=== PATIENT | male | born 1955 | race Caucasian/White ===

== ENCOUNTER 2018-01-08 20:57 | Emergency (ER) | payer OTHER ==
[2018-01-08 21:04] VITALS: BP 159/96; PULSE 114; TEMP 99.1; BMI 30.7
--- NOTE | 2018-01-08 21:12 | PDOC ---
Rapid Medical Evaluation Chief Complaint: Injury Time Seen by Provider: 01/08/18 21:03 Medical Evaluation: Allergies Allergy/AdvReac Type Severity Reaction Status Date / Time No Known Allergies Allergy Verified 01/08/18 21:04 Vital Signs Temp Pulse Resp BP Pulse Ox 99.1 F 114 H 18 159/96 96 01/08/18 21:01 01/08/18 21:01 01/08/18 21:01 01/08/18 21:01 01/08/18 21:01 01/08/18 21:06 I have performed a brief in-person evaluation of this patient. The patient presents with a chief complaint of: left shoulder pain and arm pain s/p fall 2 days ago with bruising to anterior chest and left arm. Denies use of any anticoagulation , h/o bleeding tendency, Pertinent physical exam findings: ecchymosis of left side anterior chest wall and medial side of left upper arm. moderate tenderness over left AC jont and anterior LT shoulder. 2cm healing laceration to left eyebrow, no active bleeding I have ordered the following: CXR, LT shoulder x-ray The patient will proceed to the ED for further evaluation. Discharge Disposition - Diagnosis Left anterior shoulder pain Fall Qualifiers: Encounter type: initial encounter Qualified Code(s): W19.XXXA - Unspecified fall, initial encounter - Referrals Referrals: Nilson Wiseman MD [Primary Care Provider] - - Patient Instructions - Post Discharge Activity
[2018-01-08] MEDS ORDERED: DIPHTH,PERTUSS(ACELL),TET 0.5 ML DISP.SYRIN IM ONE (21:56)
--- NOTE | 2018-01-08 22:03 | PDOC ---
History of Present Illness - General Chief Complaint: Injury Stated Complaint: FALL, EYE AND SHOULDER IINJURY Time Seen by Provider: 01/08/18 21:03 History Source: Patient Exam Limitations: No Limitations - History of Present Illness Initial Comments: 01/08/18 22:05 HISTORY OF PRESENT ILLNESS: Is a 62-year-old male past medical history of hypertension and bronchitis who presents emergency Department with chest pain, left shoulder pain, left eyebrow abrasion status post trip and fall 3 days ago. Patient states he was in his house with his phone rang and he went running for the phone tripping over something on the floor and landing on his tackle box chest first. He states after striking his chest on the tackle box his head continued and struck the hardwood floor. He denies any loss of consciousness. Patient states he was immediately able to get off the floor and was able to answer the phone. Patient states she waited 3 days for evaluation as the pain is currently 2 much to handle at this time. Patient with unknown tetanus shot. No recent travel or sick contacts. PAST MEDICAL HISTORY: see HPI SURGICAL HISTORY: Denies ALLERGIES: No known drug allergies REVIEW OF SYSTEMS General/Constitutional: Denies fever or chills. Denies weakness, weight change. HEENT: Denies change in vision. Denies ear pain or discharge. Denies sore throat. Cardiovascular: chest pain. No shortness of breath. Respiratory: Denies cough, wheezing, or hemoptysis. Gastrointestinal: Denies nausea, vomiting, diarrhea or constipation. Denies rectal bleeding. Genitourinary: Denies dysuria, frequency, or change in urination. Musculoskeletal: Left shoulder pain. Denies neck or back pain. Skin and breasts: bruising to chest. Neurologic: Denies headache, vertigo, loss of consciousness, or loss of sensation. Psychiatric: Denies depression or anxiety. Endocrine: Denies increased thirst. Denies abnormal weight change. Hematologic/Lymphatic: Denies anemia, easy bleeding, or history of blood clots. Allergic/Immunologic: Denies hives or skin allergy. Denies latex allergy. PHYSICAL EXAM General Appearance: Well-appearing, appropriately dressed. No apparent distress , no intoxication. HEENT: EOMI, PERRLA, normal ENT inspection, normal voice, TMs normal, pharynx normal. No conjunctival pallor. No photophobia, scleral icterus. Neck: Supple. Trachea midline. No tenderness, rigidity, carotid bruit, stridor , lymphadenopathy, or thyromegaly. Respiratory/Chest: Lungs CTAB. No shortness of breath, chest tenderness, respiratory distress, accessory muscle use. No crackles, rales, rhonchi, stridor , wheezing, dullness Cardiovascular: RRR. S1, S2. No JVD, murmur, bradycardia, tachycardia. Vascular Pulses: Dorsalis-Pedis (R): 2+, Dorsalis-Pedis (L): 2+ Gastrointestinal/Abdominal: Normal bowel sounds. Abdomen soft, non-distended. No tenderness or rebound tenderness. No organomegaly, pulsatile mass, guarding, hernia, hepatomegaly, splenomegaly. Lymphatic: No adenopathy, tenderness. Musculoskeletal/Extremities: Normal inspection. FROM of all extremities, normal capillary refill. Pelvis Stable. No CVA tenderness. No tenderness to extremities, pedal edema, swelling, erythema or deformity. Integumentary: Ecchymosis present to left chest extending from the left shoulder down to the seventh costal. There is with appearance of healing. Abrasion noted to left eyebrow laterally. Neurologic: acquisitions editor II-XII intact. Fully oriented, alert. Appropriate mood/affect. Motor strength 5/5. No appreciable EOM palsy, facial droop or sensory deficit. Past History - Past Medical History Allergies/Adverse Reactions: Allergies Allergy/AdvReac Type Severity Reaction Status Date / Time No Known Allergies Allergy Verified 01/08/18 21:04 Home Medications: Ambulatory Orders Albuterol 0.083% Nebulizer Apurva [Ventolin 0.083%] 1 neb NEB Q4H #20 vial Amlodipine Besylate/Benazepril [Lotrel 10-20 mg Capsule] 1 cap PO DAILY Azithromycin [Zithromax 250mg Tablets -] 250 mg PO UTDICT #6 tab 11/10/17 Ezetimibe/Simvastatin [Vytorin 10-20 mg Tablet] 1 tab PO DAILY 11/10/17 predniSONE [Deltasone -] 40 mg PO DAILY #8 tablet 11/10/17 COPD: Yes (CHRONIC BRONCHITIS.) HTN: Yes - Immunization History Immunization Up to Date: Yes - Suicide/Smoking/Psychosocial Hx Smoking History: Never smoked Have you smoked in the past 12 months: No Number of Cigarettes Smoked Daily: 20 If you are a former smoker, when did you quit?: 1YR Information on smoking cessation initiated: No Hx Alcohol Use: No Drug/Substance Use Hx: No Substance Use Type: None *Physical Exam - Vital Signs Last Vital Signs Temp Pulse Resp BP Pulse Ox 99.1 F 114 H 18 159/96 96 01/08/18 21:01 01/08/18 21:01 01/08/18 21:01 01/08/18 21:01 01/08/18 21:01 Medical Decision Making - Medical Decision Making 01/08/18 22:02 A/P: 62-year-old male with bruising to anterior chest status post trip and fall X-rays of chest, shoulder, humerus Boostrix Reassess X-ray of the chest as read by me: Angles clear. Cardiac silhouette is within normal limits. No focal infiltrates or consolidations present. Normal lung exam. X-ray of shoulder as read by me: mortise is intact. Scapular Y view reveals appropriate alignment of bones of the shoulder. X-ray of the humerus as read by me: No acute fractures noted. Patient with contusion to anterior chest wall and abrasion to left eyebrow. Discharge home *DC/Admit/Observation/Transfer Diagnosis at time of Disposition: Left anterior shoulder pain Fall Qualifiers: Encounter type: initial encounter Qualified Code(s): W19.XXXA - Unspecified fall, initial encounter Contusion, chest wall Qualifiers: Encounter type: initial encounter Laterality: left Qualified Code(s): S20.212A - Contusion of left front wall of thorax, initial encounter Abrasion of left eyebrow Qualifiers: Encounter type: initial encounter Qualified Code(s): S00.212A - Abrasion of left eyelid and periocular area, initial encounter - Discharge Dispostion Disposition: HOME Condition at time of disposition: Stable Decision to Admit order: No - Referrals Referrals: Nilson Wiseman MD [Primary Care Provider] - - Patient Instructions Additional Instructions: Apply ice to affected areas. Take Tylenol as needed for pain. Avoid Motrin as this can cause more bleeding and make the bruising worse. Return to emergency department for worsening pain, shortness of breath, dizziness, nausea, vomiting, inability to move shoulder or any other concerns. - Post Discharge Activity
== END 2018-01-08 22:16 | disposition home or self-care (01) ==
LOC: JERFT 20:57
PROC: 3E0234Z Introduction of Serum, Toxoid and Vaccine into Muscle, Percutaneous Approach (ICD-10-PCS; principal; 2018-01-08)
DX: S20.212A Contusion of left front wall of thorax, initial encounter (principal); M25.512 Pain in left shoulder; S00.212A Abrasion of left eyelid and periocular area, initial encounter; W01.198A Fall on same level from slipping, tripping and stumbling with subsequent striking against other object, initial encounter; Y93.02 Activity, running; Y92.038 Other place in apartment as the place of occurrence of the external cause; Y99.8 Other external cause status; I10 Essential (primary) hypertension; J42 Unspecified chronic bronchitis
CPT/HCPCS: 71045-TC-FY; 73030-TC-LT-FY; 73060-TC-LT-FY; 90471; 90715; 99281-25

== ENCOUNTER 2020-10-08 05:22 | Emergency (ER) | payer OTHER ==
[2020-10-08 05:39] VITALS: TEMP 98.2; BMI 29.0
[2020-10-08] MEDS ORDERED: ALBUTEROL SO4 2.5/IPRATROPIUM 0.5 INH SOL 3 ML VIAL.NEB. NEB ONE ×2 (05:39→07:25)
[2020-10-08] MEDS ORDERED: DEXAMETHASONE SOD PHOSPHATE 10 MG/1 ML VIAL IM ONE (05:43)
[2020-10-08] MEDS ORDERED: DEXAMETHASONE SOD PHOSPHATE 10 MG/1 ML VIAL ONE (05:51)
[2020-10-08] MEDS: ALBUTEROL SO4 2.5/IPRATROPIUM 0.5 INH SOL 3 ML VIAL.NEB. NEB SCH ×2 (07:25→07:35)
[2020-10-08 07:49] LABS: VENOUS BASE EXCESS -1.3 mmol/L (-2-2); VENOUS O2 SATURATION 31.8 % (70-80); VENOUS PCO2 51.7 mmHg (38-52); VENOUS PH 7.314 (7.310-7.410)
[2020-10-08 07:57] LABS: BASO % 0.3 % (0-2.0); EOS % 0.5 % (0-4.5); HEMATOCRIT 42.4 % (35.4-49); HEMOGLOBIN 14.3 GM/dL (11.7-16.9); LYMPH % 14.5 % (8-40); MCH 31.6 pg (25.7-33.7); MCHC 33.7 g/dl (32.0-35.9); MEAN CELL VOLUME 93.6 fl (80-96); MEAN PLT VOLUME 8.1 fl (7.5-11.1); MONO % 10.9 % (3.8-10.2); NEUT % 73.8 % (42.8-82.8); PLATELET COUNT 317 10^3/uL (134-434); RBC 4.53 M/mm3 (4.00-5.60); RDW 13.9 % (11.9-15.9); WHITE BLOOD COUNT 11.2 K/mm3 (4.0-10.0)
[2020-10-08 08:06] VITALS: BP 133/82; PULSE 95
[2020-10-08 08:06] LABS: INR 0.91 (0.83-1.09)
[2020-10-08 08:08] LABS: CHLORIDE 107 mmol/L (98-107); SODIUM 142 mmol/L (136-145)
[2020-10-08 08:09] LABS: ACTIVATED PTT 31.7 SECONDS (25.2-36.5)
[2020-10-08 08:10] LABS: ALBUMIN 4.4 g/dl (3.4-5.0); ANION GAP 8 MMOL/L (8-16); BLOOD UREA NITROGEN 23.3 mg/dL (7-18); CALCIUM 9.6 mg/dL (8.5-10.1); CO2 27 mmol/L (21-32); GLUCOSE,RANDOM 100 mg/dL (74-106)
[2020-10-08 08:13] LABS: BILIRUBIN,DIRECT 0.1 mg/dL (0.0-0.2); SGOT/AST 21 U/L (15-37); SGPT/ALT 34 U/L (13-61)
[2020-10-08 08:14] LABS: CREATININE 1.1 mg/dL (0.55-1.3)
[2020-10-08 08:15] LABS: BILIRUBIN,TOTAL 0.3 mg/dL (0.2-1); TOT PROT 7.9 g/dl (6.4-8.2)
[2020-10-08 08:16] LABS: ALK PHOS 70 U/L (45-117)
[2020-10-08 08:17] LABS: LDH 207 U/L (87-246)
== END 2020-10-08 09:41 | disposition left against medical advice (07) ==
LOC: JER 05:22
PROC: 3E0F7GC Introduction of Other Therapeutic Substance into Respiratory Tract, Via Natural or Artificial Opening (ICD-10-PCS; principal; 2020-10-08)
PROC: 3E0233Z Introduction of Anti-inflammatory into Muscle, Percutaneous Approach (ICD-10-PCS; 2020-10-08)
DX: J44.1 Chronic obstructive pulmonary disease with (acute) exacerbation (principal); N39.44 Nocturnal enuresis
CPT/HCPCS: 36415; 71045-TC-FY; 80053; 82248; 82550; 82553; 82728; 82803; 83605; 83615; 84484; 85025; 85610; 85730; 86140; 87040; 87804; 93005; 93010; 99285-25; C9803; J1100; U0003; U0005

== ENCOUNTER 2022-04-16 05:11 | Emergency (ER) | payer OTHER ==
[2022-04-16 05:23] VITALS: TEMP 97.7; BMI 25.7
[2022-04-16] MEDS ORDERED: ALBUTEROL SO4 2.5/IPRATROPIUM 0.5 INH SOL 3 ML VIAL.NEB. NEB ONE ×2 (08:00→08:06)
[2022-04-16 08:27] LABS: BASO % 0.3 % (0-2.0); HEMATOCRIT 33.3 % (35.4-49); LYMPH % 14.1 % (8-40); MCH 31.6 pg (25.7-33.7); MCHC 33.1 g/dl (32.0-35.9); MEAN CELL VOLUME 95.4 fl (80-96); MEAN PLT VOLUME 7.1 fl (7.5-11.1); MONO % 6.8 % (3.8-10.2); NEUT % 77.8 % (42.8-82.8); PLATELET COUNT 539 10^3/uL (134-434); RBC 3.49 M/mm3 (4.00-5.60); RDW 13.7 % (11.9-15.9); WHITE BLOOD COUNT 10.6 K/mm3 (4.0-10.0)
[2022-04-16 09:03] LABS: ALBUMIN 3.2 g/dl (3.4-5.0); BLOOD UREA NITROGEN 19.6 mg/dL (7-18); CALCIUM 9.6 mg/dL (8.5-10.1); MAGNESIUM 1.8 mg/dL (1.8-2.4)
[2022-04-16 09:06] LABS: CREATININE 0.9 mg/dL (0.55-1.3)
[2022-04-16 09:08] LABS: BILIRUBIN,TOTAL 0.4 mg/dL (0.2-1); TOT PROT 6.7 g/dl (6.4-8.2)
[2022-04-16 10:16] VITALS: BP 130/80; PULSE 83; RESP 19
== END 2022-04-16 10:18 | disposition home or self-care (01) ==
LOC: JER 05:11
PROC: 3E0F7GC Introduction of Other Therapeutic Substance into Respiratory Tract, Via Natural or Artificial Opening (ICD-10-PCS; principal; 2022-04-16)
DX: R05.9 Cough, unspecified (principal); F19.982 Other psychoactive substance use, unspecified with psychoactive substance-induced sleep disorder
CPT/HCPCS: 0241U-QW; 36415; 71046-TC-FY; 80053; 83735; 85025; 93005; 93010; 99285-25

== ENCOUNTER 2022-05-22 16:17 | Emergency (ER) | payer OTHER ==
[2022-05-22 16:25] VITALS: BP 151/88; PULSE 77; RESP 18; TEMP 98; BMI 27.8
[2022-05-22 18:36] LABS: BASO % 0.9 % (0-2.0); EOS % 3.4 % (0-4.5); HEMATOCRIT 31.6 % (35.4-49); HEMOGLOBIN 10.5 GM/dL (11.7-16.9); LYMPH % 9.9 % (8-40); MCH 30.7 pg (25.7-33.7); MCHC 33.1 g/dl (32.0-35.9); MEAN CELL VOLUME 92.9 fl (80-96); MEAN PLT VOLUME 7.5 fl (7.5-11.1); MONO % 6.2 % (3.8-10.2); NEUT % 79.6 % (42.8-82.8); PLATELET COUNT 694 10^3/uL (134-434); RDW 15.6 % (11.9-15.9); WHITE BLOOD COUNT 14.5 K/mm3 (4.0-10.0)
[2022-05-22] MEDS ORDERED: methylPREDNISolone NA SUCC 125 MG/2 ML VIAL IVPB ONE (19:14)
[2022-05-22] MEDS ORDERED: methylPREDNISolone NA SUCC 125 MG/2 ML VIAL ONE (19:32)
[2022-05-22 19:35] LABS: CALCIUM 9.2 mg/dL (8.5-10.1)
[2022-05-22 19:36] LABS: ALBUMIN 3.1 g/dl (3.4-5.0); BLOOD UREA NITROGEN 22.7 mg/dL (7-18)
[2022-05-22 19:39] LABS: CREATININE 0.8 mg/dL (0.55-1.3)
[2022-05-22 19:41] LABS: BILIRUBIN,TOTAL 0.3 mg/dL (0.2-1); TOT PROT 6.9 g/dl (6.4-8.2)
[2022-05-22 19:44] LABS: N-TERMINAL BNP 157.9 pg/ml (5-125)
== END 2022-05-22 19:41 | disposition left against medical advice (07) ==
LOC: JER 16:17
PROC: 3E033GC Introduction of Other Therapeutic Substance into Peripheral Vein, Percutaneous Approach (ICD-10-PCS; principal; 2022-05-22)
DX: R06.09 Other forms of dyspnea (principal); J98.4 Other disorders of lung; J98.11 Atelectasis
CPT/HCPCS: 36415; 71046-TC-FY; 80053; 83880; 85025; 93005; 93010; 99285-25

== ENCOUNTER 2022-06-27 16:11 | Emergency (ER) | payer OTHER ==
[2022-06-27 16:27] VITALS: BP 149/93; PULSE 86; RESP 18; TEMP 98.8; BMI 29.2
[2022-06-27] MEDS ORDERED: LIDOCAINE HCL 1%, 10 MG/ML (50 mL VIAL) SQ ONE (17:46)
[2022-06-27] MEDS ORDERED: LIDOCAINE HCL 1%, 10 MG/ML (20ML VIAL) ONE (17:46)
[2022-06-27 20:41] LABS: BF WBC & OTHER NUCLEATED CELLS 9448 /mm3
[2022-06-27 20:49] LABS: CRYSTALS,SYNOVIAL FLUID NEGATIVE
[2022-06-27 21:04] LABS: BODY FLUID MONOCYTE 12 %
== END 2022-06-27 20:25 | disposition home or self-care (01) ==
LOC: FER 16:11
PROC: 0S9C3ZZ Drainage of Right Knee Joint, Percutaneous Approach (ICD-10-PCS; principal; 2022-06-27)
DX: M25.461 Effusion, right knee (principal)
CPT/HCPCS: 36415; 73562-TC-RT-FY; 84560; 87070; 87075; 87205; 89060; 99284-25

== ENCOUNTER 2022-07-12 07:04 | Emergency (ER) | payer OTHER ==
[2022-07-12 07:19] VITALS: BP 160/94; PULSE 89; RESP 18; TEMP 97.8; BMI 31.4
== END 2022-07-12 11:45 | disposition home or self-care (01) ==
LOC: FER 07:04
DX: R30.0 Dysuria (principal); M54.50 Low back pain, unspecified
CPT/HCPCS: 74176-TC; 81003; 81015; 87086; 99284-25

== ENCOUNTER 2022-07-28 04:08 | Day surgery (SDC) | payer OTHER ==
[2022-07-24 13:11] VITALS: BMI 31.4
[2022-07-28] MEDS ORDERED: PROPOFOL 40 ML ONE (10:55)
[2022-07-28] MEDS ORDERED: MIDAZOLAM HCL 2 MG/2 ML SINGLE DOSE VIAL ONE ×2 (10:55→11:48)
[2022-07-28] MEDS ORDERED: ALBUTEROL SO4 HFA INHALER IH ONE (11:28)
[2022-07-28] MEDS ORDERED: LIDOCAINE HCL 1%, 10 MG/ML (20ML VIAL) INF ONE ×2 (11:29→12:01)
[2022-07-28] MEDS ORDERED: BUPIVACAINE HCL/PF 0.5% (5MG/ML) 10 ML VIAL NR ONE ×2 (11:29→12:01)
[2022-07-28] MEDS ORDERED: ceFAZolin SODIUM 1 GM VIAL IVPB ONE ×2 (11:30→11:58)
[2022-07-28] MEDS ORDERED: ceFAZolin SODIUM 1 GM VIAL ONE (11:54)
[2022-07-28] MEDS ORDERED: ONDANSETRON 4 MG/2 ML VIAL ONE (11:54)
[2022-07-28] MEDS ORDERED: DEXAMETHASONE SOD PHOSPHATE 4 MG/1 ML VIAL ONE (11:54)
[2022-07-28] MEDS ORDERED: KETOROLAC TROMETHAMINE 30 MG/1 ML VIAL ONE (11:54)
[2022-07-28] MEDS ORDERED: ALBUTEROL SO4 0.083% IH SOL 2.5 MG/3 ML VIAL.NEB. NEB ONE ×2 (13:34→14:49)
[2022-07-28] MEDS ORDERED: ONDANSETRON 4 MG/2 ML VIAL IVPUSH PRN (14:48)
[2022-07-28] MEDS ORDERED: oxyCODONE HCL 5 MG TABLET PO PRN (14:48)
[2022-07-28] MEDS ORDERED: LACTATED RINGERS SOLUTION 1,000 ML IV SCH (15:00)
[2022-07-28 15:35] VITALS: TEMP 97.2
[2022-07-28 16:15] VITALS: BP 130/91; PULSE 83; RESP 18
== END 2022-07-28 16:25 | disposition home or self-care (01) ==
LOC: JASU-SURG 04:08
PROVIDERS: ATTEND Orthopaedic Surgery
PROC: 01N53ZZ Release Median Nerve, Percutaneous Approach (ICD-10-PCS; principal; 2022-07-28 11:00)
PROC: 01N43ZZ Release Ulnar Nerve, Percutaneous Approach (ICD-10-PCS; 2022-07-28 11:00)
DX: G56.02 Carpal tunnel syndrome, left upper limb (principal); G56.22 Lesion of ulnar nerve, left upper limb
CPT/HCPCS: 88304-TC; 94760

== ENCOUNTER 2022-09-11 07:17 | Day surgery (SDC) | payer OTHER ==
[2022-09-09 12:23] VITALS: BMI 31.4
[2022-09-11] MEDS ORDERED: BUPIVACAINE HCL/PF 0.5% (5MG/ML) 10 ML VIAL ONE (07:29)
[2022-09-11] MEDS ORDERED: LIDOCAINE HCL 1%, 10 MG/ML (20ML VIAL) ONE (07:29)
[2022-09-11] MEDS ORDERED: MIDAZOLAM HCL 2 MG/2 ML SINGLE DOSE VIAL ONE (08:55)
[2022-09-11 10:23] VITALS: RESP 16; TEMP 97.6
[2022-09-11 11:55] VITALS: BP 141/85; PULSE 76
== END 2022-09-11 10:55 | disposition home or self-care (01) ==
LOC: FASU 07:17
PROVIDERS: ATTEND Orthopaedic Surgery
PROC: 0LB50ZZ Excision of Right Lower Arm and Wrist Tendon, Open Approach (ICD-10-PCS; 2022-09-11)
PROC: 01N50ZZ Release Median Nerve, Open Approach (ICD-10-PCS; principal; 2022-09-11 09:26)
DX: G56.01 Carpal tunnel syndrome, right upper limb (principal)
CPT/HCPCS: 88304-TC

== ENCOUNTER 2022-11-19 10:37 | Inpatient (IN) | payer OTHER ==
[2022-11-19 10:46] VITALS: BMI 31.4
[2022-11-19] MEDS ORDERED: SODIUM CHLORIDE 3,062 ML IV ONE (10:48)
[2022-11-19] MEDS ORDERED: CEFTRIAXONE 1,000 MG in DEXTROSE 5%-WATER - 50 ML IVPB ONE (10:51)
[2022-11-19 11:22] LABS: BASO % 0.8 % (0-2.0); HEMATOCRIT 39.1 % (35.4-49); HEMOGLOBIN 12.9 GM/dL (11.7-16.9); LYMPH % 22.7 % (8-40); MCH 30.9 pg (25.7-33.7); MEAN CELL VOLUME 93.7 fl (80-96); MEAN PLT VOLUME 8.1 fl (7.5-11.1); MONO % 5.1 % (3.8-10.2); NEUT % 61.4 % (42.8-82.8); PLATELET COUNT 417 10^3/uL (134-434); RBC 4.17 M/mm3 (4.00-5.60); RDW 15.3 % (11.9-15.9); WHITE BLOOD COUNT 5.5 K/mm3 (4.0-10.0)
[2022-11-19 11:28] LABS: INR 1.1 (0.83-1.09); PROTHROMBIN TIME (PATIENT) 12.7 SEC (9.7-13.0)
[2022-11-19] MEDS ORDERED: CEFTRIAXONE 1 GM/50 ML BAG ONE (11:28)
[2022-11-19 11:31] LABS: ACTIVATED PTT 58.7 SECONDS (25.2-36.5)
[2022-11-19 11:34] LABS: VENOUS BASE EXCESS -2.8 mmol/L (-2-2); VENOUS PH 7.318 (7.310-7.410)
[2022-11-19] MEDS ORDERED: ERYTHROMYCIN 0.5% OPHTHALMIC OINTMENT 3.5 GM TUBE OS ONE (11:37)
[2022-11-19] MEDS ORDERED: ERYTHROMYCIN 0.5% OPHTHALMIC OINTMENT 3.5 GM TUBE OD ONE (11:37)
[2022-11-19 11:40] LABS: POTASSIUM 4.7 mmol/L (3.5-5.1)
[2022-11-19 11:42] LABS: CALCIUM 9.2 mg/dL (8.5-10.1)
[2022-11-19 11:43] LABS: ALBUMIN 3.4 g/dl (3.4-5.0)
[2022-11-19] MEDS ORDERED: ERYTHROMYCIN 0.5% OPHTHALMIC OINTMENT 3.5 GM TUBE ONE (11:44)
[2022-11-19 11:46] LABS: CREATININE 3.3 mg/dL (0.55-1.3)
[2022-11-19 11:47] LABS: BILIRUBIN,TOTAL 0.5 mg/dL (0.2-1); TOT PROT 7.5 g/dl (6.4-8.2)
[2022-11-19] MEDS ORDERED: SODIUM CHLORIDE 1,000 ML IV SCH (14:30)
[2022-11-19] MEDS ORDERED: ALBUTEROL SO4 0.083% IH SOL 2.5 MG/3 ML VIAL.NEB. NEB ONE ×2 (15:09→19:28)
[2022-11-19] MEDS ORDERED: methylPREDNISolone NA SUCC 40 MG/1 ML VIAL ONE (15:09)
[2022-11-19] MEDS ORDERED: ACETYLCYSTEINE 20% 200MG/ML 4 ML VIAL *FOR ORAL / INH USE ONLY ONE ×2 (15:09→19:28)
[2022-11-19] MEDS: methylPREDNISolone NA SUCC 40 MG/1 ML VIAL IVPUSH SCH (15:10)
[2022-11-19] MEDS: ALBUTEROL SO4 0.083% IH SOL 2.5 MG/3 ML VIAL.NEB. NEB SCH ×2 (15:10→19:33)
[2022-11-19] MEDS: ACETYLCYSTEINE 20% 200MG/ML 4 ML VIAL *FOR ORAL / INH USE ONLY NEB SCH ×2 (15:10→19:33)
[2022-11-19] MEDS: BUDESONIDE/FORMETEROL FUMARATE 160/4.5 mcg INHALER IH SCH (22:02)
[2022-11-20 08:34] LABS: BASO % 0.4 % (0-2.0); HEMATOCRIT 35.9 % (35.4-49); HEMOGLOBIN 12.2 GM/dL (11.7-16.9); LYMPH % 7.9 % (8-40); MCHC 33.9 g/dl (32.0-35.9); MEAN CELL VOLUME 91.4 fl (80-96); MEAN PLT VOLUME 7.9 fl (7.5-11.1); MONO % 1.7 % (3.8-10.2); PLATELET COUNT 383 10^3/uL (134-434); RBC 3.93 M/mm3 (4.00-5.60); RDW 15.4 % (11.9-15.9); WHITE BLOOD COUNT 8.5 K/mm3 (4.0-10.0)
[2022-11-20 08:55] LABS: POTASSIUM 5.4 mmol/L (3.5-5.1)
[2022-11-20 08:57] LABS: CALCIUM 8.3 mg/dL (8.5-10.1)
[2022-11-20 08:58] LABS: MAGNESIUM 1.1 mg/dL (1.8-2.4)
[2022-11-20] MEDS: ALBUTEROL SO4 0.083% IH SOL 2.5 MG/3 ML VIAL.NEB. NEB SCH ×4 (09:00→20:00)
[2022-11-20] MEDS: ACETYLCYSTEINE 20% 200MG/ML 4 ML VIAL *FOR ORAL / INH USE ONLY NEB SCH ×4 (09:00→20:00)
[2022-11-20 09:01] LABS: CREATININE 2.1 mg/dL (0.55-1.3)
[2022-11-20 09:02] LABS: BILIRUBIN,TOTAL 0.3 mg/dL (0.2-1)
[2022-11-20 09:03] LABS: TOT PROT 6.8 g/dl (6.4-8.2)
[2022-11-20] MEDS: BUDESONIDE/FORMETEROL FUMARATE 160/4.5 mcg INHALER IH SCH ×2 (09:59→21:43)
[2022-11-20] MEDS: methylPREDNISolone NA SUCC 40 MG/1 ML VIAL IVPUSH SCH (09:59)
[2022-11-20] MEDS ORDERED: CEFTRIAXONE 1 GM in DEXTROSE 5%-WATER - 50 ML IVPB SCH (10:00)
[2022-11-20] MEDS ORDERED: SODIUM ZIRCONIUM CYCLOSILICATE (LOKELMA) 5 GM PACKET PO ONE (10:45)
[2022-11-20 13:54] LABS: PH,URINE 5.5 (5.0-8.0); URINE APPEARANCE CLEAR; URINE BILIRUBIN NEGATIVE (NEGATIVE); URINE COLOR YELLOW; URINE GLUCOSE (UA) NEGATIVE (NEGATIVE); URINE KETONE TRACE (NEGATIVE); URINE LEUK ESTERASE NEGATIVE (NEGATIVE); URINE NITRITE NEGATIVE (NEGATIVE); URINE PROTEIN NEGATIVE (NEGATIVE)
[2022-11-20] MEDS ORDERED: MAGNESIUM 2GM/50ML STERILE WATER IVPB IVPB ONE (14:05)
[2022-11-20] MEDS: SODIUM CHLORIDE 1,000 ML IV SCH (14:38)
[2022-11-20] MEDS: MAGNESIUM OXIDE 400 MG TABLET (FP) PO SCH ×2 (14:38→21:42)
[2022-11-20] MEDS: PIPERACILLIN/TAZOB 2.25 GM 2.25 GM in DEXTROSE 5%-WATER - 50 ML IVPB SCH (18:17)
[2022-11-20] MEDS: ATORVASTATIN CA 20 MG TABLET (FP) PO SCH (21:42)
[2022-11-21] MEDS: PIPERACILLIN/TAZOB 2.25 GM 2.25 GM in DEXTROSE 5%-WATER - 50 ML IVPB SCH ×3 (02:00→17:55)
[2022-11-21] MEDS: ACETYLCYSTEINE 20% 200MG/ML 4 ML VIAL *FOR ORAL / INH USE ONLY NEB SCH ×4 (07:15→20:35)
[2022-11-21] MEDS: ALBUTEROL SO4 0.083% IH SOL 2.5 MG/3 ML VIAL.NEB. NEB SCH ×4 (07:15→20:35)
[2022-11-21 08:02] LABS: POTASSIUM 4.8 mmol/L (3.5-5.1)
[2022-11-21 08:15] LABS: ALBUMIN 2.9 g/dl (3.4-5.0)
[2022-11-21 08:17] LABS: BILIRUBIN,TOTAL 0.2 mg/dL (0.2-1); BLOOD UREA NITROGEN 36.6 mg/dL (7-18); TOT PROT 6.3 g/dl (6.4-8.2)
[2022-11-21 08:19] LABS: CALCIUM 8.2 mg/dL (8.5-10.1); CREATININE 1.7 mg/dL (0.55-1.3)
[2022-11-21 08:27] LABS: MAGNESIUM 1.5 mg/dL (1.8-2.4)
[2022-11-21] MEDS: methylPREDNISolone NA SUCC 40 MG/1 ML VIAL IVPUSH SCH (09:49)
[2022-11-21] MEDS: BUDESONIDE/FORMETEROL FUMARATE 160/4.5 mcg INHALER IH SCH ×2 (09:50→22:13)
[2022-11-21] MEDS: MAGNESIUM OXIDE 400 MG TABLET (FP) PO SCH ×2 (09:50→22:12)
[2022-11-21] MEDS ORDERED: MAGNESIUM 2GM/50ML STERILE WATER IVPB IVPB ONE (10:00)
[2022-11-21] MEDS: SODIUM CHLORIDE 1,000 ML IV SCH (17:55)
[2022-11-21] MEDS: ATORVASTATIN CA 20 MG TABLET (FP) PO SCH (22:12)
[2022-11-22] MEDS: PIPERACILLIN/TAZOB 2.25 GM 2.25 GM in DEXTROSE 5%-WATER - 50 ML IVPB SCH ×3 (03:16→17:34)
[2022-11-22] MEDS: ALBUTEROL SO4 0.083% IH SOL 2.5 MG/3 ML VIAL.NEB. NEB SCH ×4 (07:15→20:20)
[2022-11-22] MEDS: ACETYLCYSTEINE 20% 200MG/ML 4 ML VIAL *FOR ORAL / INH USE ONLY NEB SCH ×4 (07:15→20:20)
[2022-11-22] MEDS: MAGNESIUM OXIDE 400 MG TABLET (FP) PO SCH ×2 (10:00→23:49)
[2022-11-22] MEDS: methylPREDNISolone NA SUCC 40 MG/1 ML VIAL IVPUSH SCH (10:19)
[2022-11-22] MEDS: BUDESONIDE/FORMETEROL FUMARATE 160/4.5 mcg INHALER IH SCH ×2 (10:23→23:52)
[2022-11-22] MEDS: SODIUM CHLORIDE 1,000 ML IV SCH (13:45)
[2022-11-22] MEDS: ATORVASTATIN CA 20 MG TABLET (FP) PO SCH (23:49)
[2022-11-23] MEDS: PIPERACILLIN/TAZOB 2.25 GM 2.25 GM in DEXTROSE 5%-WATER - 50 ML IVPB SCH ×3 (03:09→17:34)
[2022-11-23 08:15] LABS: HEMATOCRIT 30.2 % (35.4-49); MCH 30.9 pg (25.7-33.7); MEAN CELL VOLUME 93.5 fl (80-96); MEAN PLT VOLUME 8.7 fl (7.5-11.1); PLATELET COUNT 297 10^3/uL (134-434); RBC 3.23 M/mm3 (4.00-5.60); RDW 15.5 % (11.9-15.9); WHITE BLOOD COUNT 9.5 K/mm3 (4.0-10.0)
[2022-11-23 08:23] LABS: POTASSIUM 5.1 mmol/L (3.5-5.1)
[2022-11-23 08:31] LABS: BLOOD UREA NITROGEN 20.6 mg/dL (7-18); CALCIUM 8.2 mg/dL (8.5-10.1)
[2022-11-23 08:32] LABS: ALBUMIN 2.9 g/dl (3.4-5.0)
[2022-11-23 08:34] LABS: CREATININE 1.2 mg/dL (0.55-1.3)
[2022-11-23 08:35] LABS: BILIRUBIN,TOTAL 0.3 mg/dL (0.2-1)
[2022-11-23] MEDS: ACETYLCYSTEINE 20% 200MG/ML 4 ML VIAL *FOR ORAL / INH USE ONLY NEB SCH ×4 (08:42→20:21)
[2022-11-23] MEDS: ALBUTEROL SO4 0.083% IH SOL 2.5 MG/3 ML VIAL.NEB. NEB SCH ×4 (08:43→20:21)
[2022-11-23] MEDS: methylPREDNISolone NA SUCC 40 MG/1 ML VIAL IVPUSH SCH (10:03)
[2022-11-23] MEDS: MAGNESIUM OXIDE 400 MG TABLET (FP) PO SCH ×2 (10:03→22:07)
[2022-11-23] MEDS: BUDESONIDE/FORMETEROL FUMARATE 160/4.5 mcg INHALER IH SCH ×2 (10:04→22:08)
[2022-11-23] MEDS: SODIUM CHLORIDE 1,000 ML IV SCH (17:34)
[2022-11-23 19:25] VITALS: RESP 20
[2022-11-23] MEDS: ATORVASTATIN CA 20 MG TABLET (FP) PO SCH (22:07)
[2022-11-24] MEDS: PIPERACILLIN/TAZOB 2.25 GM 2.25 GM in DEXTROSE 5%-WATER - 50 ML IVPB SCH ×3 (01:09→10:58)
[2022-11-24] MEDS: ACETYLCYSTEINE 20% 200MG/ML 4 ML VIAL *FOR ORAL / INH USE ONLY NEB SCH ×2 (07:38→11:00)
[2022-11-24] MEDS: ALBUTEROL SO4 0.083% IH SOL 2.5 MG/3 ML VIAL.NEB. NEB SCH ×3 (07:38→15:01)
[2022-11-24] MEDS: SODIUM CHLORIDE 1,000 ML IV SCH (10:48)
[2022-11-24] MEDS: methylPREDNISolone NA SUCC 40 MG/1 ML VIAL IVPUSH SCH ×2 (10:48→10:57)
[2022-11-24] MEDS: MAGNESIUM OXIDE 400 MG TABLET (FP) PO SCH (10:48)
[2022-11-24] MEDS: BUDESONIDE/FORMETEROL FUMARATE 160/4.5 mcg INHALER IH SCH ×2 (10:49→10:58)
[2022-11-24 11:48] VITALS: BP 121/61; PULSE 71; TEMP 97.6
[2022-11-24] MEDS ORDERED: FUROSEMIDE 40 MG/4 ML INJECTABLE VIAL IVPUSH ONE (14:45)
== END 2022-11-24 15:15 | disposition home or self-care (01) | DRG 190 ==
LOC: JER 10:37 → JERBED 11:44 → J4W 20:42
PROVIDERS: ADMIT Internal Medicine; ATTEND Family Medicine
DX: J44.0 Chronic obstructive pulmonary disease with (acute) lower respiratory infection (principal); J18.9 Pneumonia, unspecified organism; N17.9 Acute kidney failure, unspecified; M62.82 Rhabdomyolysis; J44.1 Chronic obstructive pulmonary disease with (acute) exacerbation; I10 Essential (primary) hypertension; E78.5 Hyperlipidemia, unspecified; H10.89 Other conjunctivitis; R26.81 Unsteadiness on feet; E83.42 Hypomagnesemia; E87.5 Hyperkalemia; I95.9 Hypotension, unspecified; Z85.118 Personal history of other malignant neoplasm of bronchus and lung
CPT/HCPCS: 0241U-QW; 36415; 70450-TC; 71045-TC-FY; 71250-TC; 74176-TC; 76775-TC; 80053; 81003; 82550; 82553; 82803; 83605; 83735; 83880; 84484; 85025; 85027; 85610; 85730; 86850; 86900; 86901; 87040; 87070; 87086; 87205; 87899; 93005; 93010; 93306-TC; 94640; 99291

== ENCOUNTER 2023-01-05 11:18 | Inpatient (IN) | payer OTHER ==
[2023-01-05] MEDS ORDERED: LACTATED RINGERS SOLUTION 1000 ML INFUS.BAG IV ONE (11:30)
[2023-01-05 11:45] LABS: VENOUS BASE EXCESS -1.6 mmol/L (-2-2); VENOUS O2 SATURATION 62.2 % (70-80); VENOUS PCO2 47.9 mmHg (38-52); VENOUS PH 7.331 (7.310-7.410)
[2023-01-05 11:55] LABS: BASO % 1.5 % (0-2.0); EOS % 3.9 % (0-4.5); HEMATOCRIT 32.3 % (35.4-49); HEMOGLOBIN 10.8 GM/dL (11.7-16.9); LYMPH % 22.7 % (8-40); MCH 31.2 pg (25.7-33.7); MCHC 33.3 g/dl (32.0-35.9); MEAN CELL VOLUME 93.7 fl (80-96); MEAN PLT VOLUME 8.7 fl (7.5-11.1); MONO % 4.2 % (3.8-10.2); NEUT % 67.7 % (42.8-82.8); PLATELET COUNT 146 10^3/uL (134-434); RBC 3.45 M/mm3 (4.00-5.60); RDW 15.9 % (11.9-15.9); WHITE BLOOD COUNT 5.5 K/mm3 (4.0-10.0)
[2023-01-05 11:58] LABS: INR 1.04 (0.83-1.09); PROTHROMBIN TIME (PATIENT) 12.1 SEC (9.7-13.0)
[2023-01-05 12:01] LABS: ACTIVATED PTT 55.8 SECONDS (25.2-36.5)
[2023-01-05] MEDS ORDERED: PIPERACILLIN/TAZOB 4.5 GM 4.5 GM in DEXTROSE 5%-WATER 100 ML IVPB ONE (12:05)
[2023-01-05] MEDS ORDERED: VANCOMYCIN HCL 1,500 MG in DEXTROSE 5%-WATER - 500 ML IVPB ONE (12:05)
[2023-01-05 12:17] LABS: POTASSIUM 5.6 mmol/L (3.5-5.1)
[2023-01-05 12:19] LABS: BLOOD UREA NITROGEN 58.7 mg/dL (7-18); CALCIUM 9.4 mg/dL (8.5-10.1)
[2023-01-05 12:20] LABS: ALBUMIN 3.1 g/dl (3.4-5.0); MAGNESIUM 1.6 mg/dL (1.8-2.4)
[2023-01-05 12:22] LABS: CREATININE 5.8 mg/dL (0.55-1.3)
[2023-01-05 12:24] LABS: BILIRUBIN,TOTAL 0.4 mg/dL (0.2-1); TOT PROT 6.6 g/dl (6.4-8.2)
[2023-01-05 12:27] LABS: N-TERMINAL BNP 341.6 pg/ml (5-125)
[2023-01-05] MEDS ORDERED: SODIUM CHLORIDE 0.9% 500 ML INFUS.BAG IV ONE (12:30)
[2023-01-05] MEDS ORDERED: NOREPINEPHRINE BITARTRATE 4,000 MCG in SODIUM CHLORIDE 496 ML IV SCH (12:30)
[2023-01-05] MEDS ORDERED: NOREPINEPHRINE BITARTRATE 4 MG/4 ML ML IV ONE (12:34)
[2023-01-05] MEDS ORDERED: MAGNESIUM SULF 50% (8.12 MEQ/2 ML-1 GM VIAL) IVPB ONE (12:34)
[2023-01-05] MEDS ORDERED: VANCOMYCIN PREMIX 1.5 GM 1,500 MG/300 ML BAG IVPB ONE (13:00)
[2023-01-05 13:46] LABS: POTASSIUM 4.4 mmol/L (3.5-5.1)
[2023-01-05 13:48] LABS: BLOOD UREA NITROGEN 56.7 mg/dL (7-18); CALCIUM 9.1 mg/dL (8.5-10.1)
[2023-01-05 13:52] LABS: CREATININE 5.2 mg/dL (0.55-1.3)
[2023-01-05 13:53] LABS: BILIRUBIN,TOTAL 0.4 mg/dL (0.2-1); TOT PROT 6.2 g/dl (6.4-8.2)
[2023-01-05 14:45] LABS: MAGNESIUM 1.4 mg/dL (1.8-2.4)
[2023-01-05] MEDS ORDERED: NALOXONE HCL 0.4 MG/ML VIAL IVPUSH ONE (14:45)
[2023-01-05 14:49] LABS: PHOSPHOROUS 4.4 mg/dL (2.5-4.9)
[2023-01-05] MEDS ORDERED: DEXTROSE 50%-WATER - 25 GM/50 ML VIAL IVPUSH PRN (14:51)
[2023-01-05] MEDS: SODIUM CHLORIDE 1,000 ML IV SCH (16:10)
[2023-01-05] MEDS: HEPARIN NA (PORCINE) 5,000 UNITS/ML 1ML VIAL SQ SCH ×2 (16:10→22:04)
[2023-01-05] MEDS ORDERED: HYDROCORTISONE SOD SUCCINATE 100 MG/2 ML VIAL IVPUSH ONE (16:41)
[2023-01-05 17:27] LABS: EPI CELLS 19 /uL (0-25.1); HYALINE CASTS 6 /uL (0-3.1); PH,URINE 5.5 (5.0-8.0); URINE APPEARANCE CLOUDY; URINE BACTERIA 33 /uL (0-1359); URINE BILIRUBIN 1+ (NEGATIVE); URINE COLOR DK YELLOW; URINE GLUCOSE (UA) NEGATIVE (NEGATIVE); URINE KETONE TRACE (NEGATIVE); URINE LEUK ESTERASE TRACE (NEGATIVE); URINE NITRITE NEGATIVE (NEGATIVE); URINE PROTEIN 1+ (NEGATIVE); URINE WBC 42 /uL (0-25.8)
[2023-01-05 18:05] LABS: URINE CRYSTALS NONE SEEN /hpf; URINE RBC 33.6 /uL (0-23.9); YEAST NONE SEEN (NEGATIVE)
[2023-01-05 18:59] LABS: ARTERIAL BLD GAS O2 SATURATION 92.2 % (95-98); ARTERIAL BLOOD GAS BASE EXCESS -5.5 mmol/L (-2-2); ARTERIAL BLOOD GAS PO2 71.5 mmHg (80-100); ARTERIAL BLOOD GAS pH 7.271 (7.350-7.450)
[2023-01-05] MEDS: VASOPRESSIN 40 UNITS/100 ML BAG IV SCH (19:18)
[2023-01-05] MEDS: FLUDROCORTISONE ACETATE 0.1 MG TABLET (FP) PO SCH (19:18)
[2023-01-05] MEDS: NOREPINEPHRINE 0.9 % NACL 8 MG/250 ML BAG IVPB SCH (19:47)
[2023-01-05 20:46] LABS: ARTERIAL BLD GAS O2 SATURATION 96.3 % (95-98); ARTERIAL BLOOD GAS BASE EXCESS -5.4 mmol/L (-2-2); ARTERIAL BLOOD GAS PO2 90.8 mmHg (80-100)
[2023-01-05 20:50] LABS: BASO % 0.7 % (0-2.0); EOS % 1.4 % (0-4.5); HEMOGLOBIN 10.9 GM/dL (11.7-16.9); LYMPH % 8.9 % (8-40); MCH 31.2 pg (25.7-33.7); MEAN PLT VOLUME 8.7 fl (7.5-11.1); MONO % 1.8 % (3.8-10.2); NEUT % 87.2 % (42.8-82.8); PLATELET COUNT 159 10^3/uL (134-434); RBC 3.48 M/mm3 (4.00-5.60); RDW 16.1 % (11.9-15.9)
[2023-01-05] MEDS: PIPERACILLIN/TAZOB 2.25 GM 2.25 GM in DEXTROSE 5%-WATER - 50 ML IVPB SCH (20:58)
[2023-01-05 21:13] LABS: POTASSIUM 4.4 mmol/L (3.5-5.1)
[2023-01-05 21:17] LABS: CALCIUM 8.7 mg/dL (8.5-10.1)
[2023-01-05 21:18] LABS: ALBUMIN 2.9 g/dl (3.4-5.0); BLOOD UREA NITROGEN 56.2 mg/dL (7-18); MAGNESIUM 2.1 mg/dL (1.8-2.4)
[2023-01-05 21:21] LABS: CREATININE 4.6 mg/dL (0.55-1.3); PHOSPHOROUS 4.3 mg/dL (2.5-4.9)
[2023-01-05 21:22] LABS: BILIRUBIN,TOTAL 0.4 mg/dL (0.2-1)
[2023-01-05] MEDS: MUPIROCIN 2% TOPICAL OINTMENT FOR DECOLONIZATION NS SCH (22:03)
[2023-01-05] MEDS: CHLORHEXIDINE GLUCONATE 4% CLEANSER FOR DECOLONIZATION TP SCH (22:04)
[2023-01-05] MEDS: HYDROCORTISONE SOD SUCCINATE 100 MG/2 ML VIAL IVPUSH SCH (22:12)
[2023-01-06] MEDS ORDERED: PIPERACILLIN/TAZOBACTAM 2.25 GM VIAL IVPB ONE (00:15)
[2023-01-06] MEDS: PIPERACILLIN/TAZOB 2.25 GM 2.25 GM in DEXTROSE 5%-WATER - 50 ML IVPB SCH ×5 (02:55→18:00)
[2023-01-06] MEDS: SODIUM CHLORIDE 1,000 ML IV SCH ×2 (02:55→16:34)
[2023-01-06] MEDS: HYDROCORTISONE SOD SUCCINATE 100 MG/2 ML VIAL IVPUSH SCH ×4 (05:31→23:26)
[2023-01-06 07:42] LABS: HEMATOCRIT 33.9 % (35.4-49); HEMOGLOBIN 11.1 GM/dL (11.7-16.9); MCH 31.1 pg (25.7-33.7); MCHC 32.8 g/dl (32.0-35.9); MEAN CELL VOLUME 94.8 fl (80-96); MEAN PLT VOLUME 8.5 fl (7.5-11.1); PLATELET COUNT 199 10^3/uL (134-434); RBC 3.58 M/mm3 (4.00-5.60); WHITE BLOOD COUNT 8.2 K/mm3 (4.0-10.0)
[2023-01-06 07:54] LABS: CHLORIDE 102 mmol/L (98-107); POTASSIUM 5.3 mmol/L (3.5-5.1); SODIUM 134 mmol/L (136-145)
[2023-01-06 07:59] LABS: CALCIUM 8.5 mg/dL (8.5-10.1); GLUCOSE,RANDOM 152 mg/dL (74-106)
[2023-01-06 08:00] LABS: ALBUMIN 2.9 g/dl (3.4-5.0); BLOOD UREA NITROGEN 53.5 mg/dL (7-18); MAGNESIUM 1.9 mg/dL (1.8-2.4)
[2023-01-06 08:02] LABS: ANION GAP 9 mmol/L (4-13); CO2 23 mmol/L (21-32); PHOSPHOROUS 6.7 mg/dL (2.5-4.9); SGPT/ALT 167 U/L (13-61)
[2023-01-06 08:03] LABS: BILIRUBIN,TOTAL 0.3 mg/dL (0.2-1); TOT PROT 6.4 g/dl (6.4-8.2)
[2023-01-06 08:04] LABS: ALK PHOS 170 U/L (45-117); SGOT/AST 544 U/L (15-37)
[2023-01-06] MEDS ORDERED: FLUTICASONE/UMECLIDIN/VILANTER(100-62.5-25 TRELEGY ELLIPTA) INAHLER IH SCH (10:00)
[2023-01-06] MEDS ORDERED: LEVOTHYROXINE SODIUM 100 MCG 5 ML VIAL IVPUSH SCH (10:00)
[2023-01-06] MEDS ORDERED: LEVOTHYROXINE SODIUM 100 MCG 5 ML VIAL IVPUSH ONE (10:00)
[2023-01-06] MEDS ORDERED: ENOXAPARIN NA (PORCINE) 40 MG/0.4 ML DISP.SYRIN SQ SCH (10:00)
[2023-01-06] MEDS ORDERED: LIOTHYRONINE SODIUM 5 MCG TABLET PO ONE (10:15)
[2023-01-06] MEDS: MUPIROCIN 2% TOPICAL OINTMENT FOR DECOLONIZATION NS SCH ×2 (10:19→21:19)
[2023-01-06] MEDS: FLUDROCORTISONE ACETATE 0.1 MG TABLET (FP) PO SCH (10:19)
[2023-01-06] MEDS: HEPARIN NA (PORCINE) 5,000 UNITS/ML 1ML VIAL SQ SCH ×2 (10:19→21:18)
[2023-01-06 11:24] LABS: ANISOCYTOSIS 0; HELMET CELLS 0; HOWELL-JOLLY BODIES 0; MACROCYTOSIS 0; OVALOCYTE 0; ROULEAU 0; SICKELED CELLS 0; TARGET CELLS 0; TEAR DROP CELLS 0; TOXIC GRANULATION 0
[2023-01-06] MEDS: FLUTICASONE/UMECLIDIN/VILANTER(200-62.5-25 TRELEGY ELLIPTA) INAHLER IH SCH (16:34)
[2023-01-06] MEDS ORDERED: LIOTHYRONINE SODIUM 5 MCG TABLET PO SCH (18:00)
[2023-01-06] MEDS: VASOPRESSIN 40 UNITS/100 ML BAG IV SCH (19:02)
[2023-01-06] MEDS: LIOTHYRONINE SODIUM 5 MCG TABLET PO SCH (20:03)
[2023-01-06] MEDS: NOREPINEPHRINE 0.9 % NACL 8 MG/250 ML BAG IVPB SCH (20:05)
[2023-01-06] MEDS: CHLORHEXIDINE GLUCONATE 4% CLEANSER FOR DECOLONIZATION TP SCH (21:18)
[2023-01-07] MEDS: LIOTHYRONINE SODIUM 5 MCG TABLET PO SCH ×2 (02:00→10:35)
[2023-01-07] MEDS: PIPERACILLIN/TAZOB 2.25 GM 2.25 GM in DEXTROSE 5%-WATER - 50 ML IVPB SCH ×3 (02:00→17:50)
[2023-01-07] MEDS: SODIUM CHLORIDE 1,000 ML IV SCH ×2 (05:45→17:50)
[2023-01-07] MEDS: HYDROCORTISONE SOD SUCCINATE 100 MG/2 ML VIAL IVPUSH SCH ×4 (05:45→22:01)
[2023-01-07 08:06] LABS: HEMATOCRIT 31.8 % (35.4-49); HEMOGLOBIN 10.3 GM/dL (11.7-16.9); MCH 30.5 pg (25.7-33.7); MCHC 32.4 g/dl (32.0-35.9); MEAN CELL VOLUME 94.1 fl (80-96); MEAN PLT VOLUME 8.6 fl (7.5-11.1); PLATELET COUNT 176 10^3/uL (134-434); RBC 3.38 M/mm3 (4.00-5.60); RDW 16.3 % (11.9-15.9); WHITE BLOOD COUNT 14.1 K/mm3 (4.0-10.0)
[2023-01-07 08:16] LABS: POTASSIUM 4.4 mmol/L (3.5-5.1)
[2023-01-07 08:18] LABS: CALCIUM 8.2 mg/dL (8.5-10.1)
[2023-01-07 08:19] LABS: ALBUMIN 2.7 g/dl (3.4-5.0); BLOOD UREA NITROGEN 44.4 mg/dL (7-18); MAGNESIUM 1.6 mg/dL (1.8-2.4)
[2023-01-07 08:22] LABS: CREATININE 2.9 mg/dL (0.55-1.3)
[2023-01-07 08:23] LABS: BILIRUBIN,TOTAL 0.3 mg/dL (0.2-1)
[2023-01-07] MEDS ORDERED: LEVOTHYROXINE SODIUM 100 MCG 5 ML VIAL IVPUSH SCH (10:00)
[2023-01-07 10:25] LABS: ANISOCYTOSIS 1+; MACROCYTOSIS 0
[2023-01-07] MEDS: HEPARIN NA (PORCINE) 5,000 UNITS/ML 1ML VIAL SQ SCH ×2 (10:35→21:26)
[2023-01-07] MEDS: FLUDROCORTISONE ACETATE 0.1 MG TABLET (FP) PO SCH (10:35)
[2023-01-07] MEDS: MUPIROCIN 2% TOPICAL OINTMENT FOR DECOLONIZATION NS SCH ×2 (10:38→21:26)
[2023-01-07] MEDS: FLUTICASONE/UMECLIDIN/VILANTER(200-62.5-25 TRELEGY ELLIPTA) INAHLER IH SCH (10:38)
[2023-01-07] MEDS ORDERED: VANCOMYCIN/WATER 1250 MG 1,250 MG/250 ML BAG IVPB SCH ×2 (12:00→16:00)
[2023-01-07] MEDS ORDERED: LIOTHYRONINE SODIUM 5 MCG TABLET PO SCH (18:00)
[2023-01-07] MEDS: VASOPRESSIN 40 UNITS/100 ML BAG IV SCH (20:00)
[2023-01-07] MEDS: NOREPINEPHRINE 0.9 % NACL 8 MG/250 ML BAG IVPB SCH (20:45)
[2023-01-07] MEDS: CHLORHEXIDINE GLUCONATE 4% CLEANSER FOR DECOLONIZATION TP SCH (21:26)
[2023-01-08] MEDS: PIPERACILLIN/TAZOB 2.25 GM 2.25 GM in DEXTROSE 5%-WATER - 50 ML IVPB SCH ×2 (01:36→10:17)
[2023-01-08] MEDS: HYDROCORTISONE SOD SUCCINATE 100 MG/2 ML VIAL IVPUSH SCH ×2 (04:41→10:16)
[2023-01-08] MEDS: SODIUM CHLORIDE 1,000 ML IV SCH ×2 (05:10→18:04)
[2023-01-08 07:32] LABS: HEMATOCRIT 28.9 % (35.4-49); HEMOGLOBIN 9.7 GM/dL (11.7-16.9); MCH 31.3 pg (25.7-33.7); MCHC 33.6 g/dl (32.0-35.9); MEAN CELL VOLUME 93.1 fl (80-96); MEAN PLT VOLUME 8.2 fl (7.5-11.1); PLATELET COUNT 146 10^3/uL (134-434); WHITE BLOOD COUNT 10.4 K/mm3 (4.0-10.0)
[2023-01-08 07:59] LABS: ALBUMIN 2.7 g/dl (3.4-5.0); CALCIUM 8.1 mg/dL (8.5-10.1); MAGNESIUM 1.3 mg/dL (1.8-2.4)
[2023-01-08 08:00] LABS: BLOOD UREA NITROGEN 35.7 mg/dL (7-18)
[2023-01-08 08:03] LABS: PHOSPHOROUS 2.6 mg/dL (2.5-4.9)
[2023-01-08 08:04] LABS: BILIRUBIN,TOTAL 0.4 mg/dL (0.2-1); TOT PROT 5.8 g/dl (6.4-8.2)
[2023-01-08] MEDS ORDERED: MAGNESIUM SULFATE IN WATER 2 GM/50 ML IVPB IVPB ONE (10:00)
[2023-01-08] MEDS ORDERED: LIOTHYRONINE SODIUM 25 MCG TABLET PO SCH (10:00)
[2023-01-08] MEDS: HEPARIN NA (PORCINE) 5,000 UNITS/ML 1ML VIAL SQ SCH ×2 (10:19→21:04)
[2023-01-08] MEDS: FLUTICASONE/UMECLIDIN/VILANTER(200-62.5-25 TRELEGY ELLIPTA) INAHLER IH SCH (10:19)
[2023-01-08] MEDS: LEVOTHYROXINE SODIUM 100 MCG 5 ML VIAL IVPUSH SCH (10:20)
[2023-01-08] MEDS: MUPIROCIN 2% TOPICAL OINTMENT FOR DECOLONIZATION NS SCH ×2 (10:20→21:05)
[2023-01-08] MEDS: HYDROCORTISONE SOD SUCCINATE 100 MG/2 ML VIAL IVPB SCH (18:03)
[2023-01-08] MEDS: VASOPRESSIN 40 UNITS/100 ML BAG IV SCH (18:21)
[2023-01-08] MEDS: NOREPINEPHRINE 0.9 % NACL 8 MG/250 ML BAG IVPB SCH (20:32)
[2023-01-08] MEDS: CHLORHEXIDINE GLUCONATE 4% CLEANSER FOR DECOLONIZATION TP SCH (21:05)
[2023-01-09] MEDS: HYDROCORTISONE SOD SUCCINATE 100 MG/2 ML VIAL IVPB SCH ×5 (00:57→23:19)
[2023-01-09] MEDS: LIOTHYRONINE SODIUM 25 MCG TABLET PO SCH (06:07)
[2023-01-09] MEDS: HEPARIN NA (PORCINE) 5,000 UNITS/ML 1ML VIAL SQ SCH ×2 (09:53→21:33)
[2023-01-09] MEDS: LEVOTHYROXINE SODIUM 100 MCG 5 ML VIAL IVPUSH SCH (09:53)
[2023-01-09] MEDS: FLUTICASONE/UMECLIDIN/VILANTER(200-62.5-25 TRELEGY ELLIPTA) INAHLER IH SCH (09:55)
[2023-01-09] MEDS: MUPIROCIN 2% TOPICAL OINTMENT FOR DECOLONIZATION NS SCH (09:55)
[2023-01-09] MEDS: SODIUM CHLORIDE 1,000 ML IV SCH (13:45)
[2023-01-10] MEDS: SODIUM CHLORIDE 1,000 ML IV SCH ×3 (02:22→20:04)
[2023-01-10] MEDS: HYDROCORTISONE SOD SUCCINATE 100 MG/2 ML VIAL IVPB SCH ×3 (05:06→13:42)
[2023-01-10] MEDS: LIOTHYRONINE SODIUM 25 MCG TABLET PO SCH (06:08)
[2023-01-10] MEDS: LEVOTHYROXINE SODIUM 100 MCG 5 ML VIAL IVPUSH SCH ×2 (10:31→13:42)
[2023-01-10] MEDS: FLUTICASONE/UMECLIDIN/VILANTER(200-62.5-25 TRELEGY ELLIPTA) INAHLER IH SCH (10:32)
[2023-01-10] MEDS: HEPARIN NA (PORCINE) 5,000 UNITS/ML 1ML VIAL SQ SCH ×2 (10:32→22:23)
[2023-01-10 10:40] LABS: POTASSIUM 3.5 mmol/L (3.5-5.1)
[2023-01-10 10:42] LABS: BLOOD UREA NITROGEN 21.5 mg/dL (7-18)
[2023-01-10 14:39] VITALS: BMI 26.3
[2023-01-10] MEDS ORDERED: DEXTROSE 50%-WATER 25 GM/50 ML DISP.SYRIN IVPUSH PRN (19:39)
[2023-01-11] MEDS: HYDROCORTISONE SOD SUCCINATE 100 MG/2 ML VIAL IVPB SCH ×5 (00:07→23:21)
[2023-01-11] MEDS: SODIUM CHLORIDE 1,000 ML IV SCH ×2 (06:16→22:02)
[2023-01-11] MEDS: LIOTHYRONINE SODIUM 25 MCG TABLET PO SCH (06:24)
[2023-01-11] MEDS: HEPARIN NA (PORCINE) 5,000 UNITS/ML 1ML VIAL SQ SCH ×2 (11:06→22:04)
[2023-01-11] MEDS: LEVOTHYROXINE SODIUM 100 MCG 5 ML VIAL IVPUSH SCH (11:06)
[2023-01-11] MEDS: FLUTICASONE/UMECLIDIN/VILANTER(200-62.5-25 TRELEGY ELLIPTA) INAHLER IH SCH (11:07)
[2023-01-12] MEDS: LEVOTHYROXINE NA 100 MCG TABLET (FP) PO SCH (06:17)
[2023-01-12] MEDS: LIOTHYRONINE SODIUM 25 MCG TABLET PO SCH ×2 (06:17→10:42)
[2023-01-12] MEDS: HYDROCORTISONE SOD SUCCINATE 100 MG/2 ML VIAL IVPB SCH ×3 (06:17→18:22)
[2023-01-12 07:38] VITALS: RESP 18
[2023-01-12] MEDS: HEPARIN NA (PORCINE) 5,000 UNITS/ML 1ML VIAL SQ SCH ×2 (10:22→21:37)
[2023-01-12] MEDS: FLUTICASONE/UMECLIDIN/VILANTER(200-62.5-25 TRELEGY ELLIPTA) INAHLER IH SCH (10:25)
[2023-01-13] MEDS: SODIUM CHLORIDE 1,000 ML IV SCH (00:45)
[2023-01-13] MEDS: HYDROCORTISONE SOD SUCCINATE 100 MG/2 ML VIAL IVPB SCH ×4 (00:45→17:40)
[2023-01-13] MEDS: LIOTHYRONINE SODIUM 25 MCG TABLET PO SCH (06:15)
[2023-01-13] MEDS: LEVOTHYROXINE NA 100 MCG TABLET (FP) PO SCH (06:15)
[2023-01-13 07:43] LABS: HEMATOCRIT 27.3 % (35.4-49); MCH 31.1 pg (25.7-33.7); MEAN CELL VOLUME 94.5 fl (80-96); MEAN PLT VOLUME 8.1 fl (7.5-11.1); PLATELET COUNT 231 10^3/uL (134-434); RBC 2.89 M/mm3 (4.00-5.60); RDW 16.3 % (11.9-15.9); WHITE BLOOD COUNT 7.6 K/mm3 (4.0-10.0)
[2023-01-13 08:10] LABS: POTASSIUM 3.3 mmol/L (3.5-5.1)
[2023-01-13 08:12] LABS: ALBUMIN 2.8 g/dl (3.4-5.0); CALCIUM 7.7 mg/dL (8.5-10.1)
[2023-01-13 08:13] LABS: BLOOD UREA NITROGEN 25.9 mg/dL (7-18)
[2023-01-13 08:15] LABS: CREATININE 0.9 mg/dL (0.55-1.3)
[2023-01-13 08:18] LABS: BILIRUBIN,TOTAL 0.4 mg/dL (0.2-1); TOT PROT 5.7 g/dl (6.4-8.2)
[2023-01-13] MEDS: FLUTICASONE/UMECLIDIN/VILANTER(200-62.5-25 TRELEGY ELLIPTA) INAHLER IH SCH (09:55)
[2023-01-13] MEDS: HEPARIN NA (PORCINE) 5,000 UNITS/ML 1ML VIAL SQ SCH ×2 (09:59→21:47)
[2023-01-13] MEDS ORDERED: INSULIN (NOVOLOG) ASPART 100 UNITS/ML 10ML VIAL ONE (11:55)
[2023-01-13] MEDS ORDERED: POTASSIUM CHLORIDE ORAL LIQUID 20 MEQ/15 ML PO ONE (13:16)
[2023-01-14 01:59] VITALS: PULSE 91
[2023-01-14] MEDS: HYDROCORTISONE SOD SUCCINATE 100 MG/2 ML VIAL IVPB SCH (03:15)
[2023-01-14] MEDS: LIOTHYRONINE SODIUM 25 MCG TABLET PO SCH (06:30)
[2023-01-14 06:58] VITALS: BP 134/89; TEMP 97.9
[2023-01-14] MEDS ORDERED: LEVOTHYROXINE NA 75 MCG TABLET (FP) PO SCH (07:00)
[2023-01-14] MEDS ORDERED: HYDROCORTISONE SOD SUCCINATE 100 MG/2 ML VIAL IVPB SCH (10:00)
[2023-01-14 10:03] LABS: POTASSIUM 3.6 mmol/L (3.5-5.1)
[2023-01-14 10:10] LABS: HEMATOCRIT 29.3 % (35.4-49); HEMOGLOBIN 9.5 GM/dL (11.7-16.9); MCH 30.8 pg (25.7-33.7); MCHC 32.4 g/dl (32.0-35.9); MEAN PLT VOLUME 8.4 fl (7.5-11.1); PLATELET COUNT 276 10^3/uL (134-434); RBC 3.08 M/mm3 (4.00-5.60); RDW 16.5 % (11.9-15.9); WHITE BLOOD COUNT 9.6 K/mm3 (4.0-10.0)
[2023-01-14 10:14] LABS: BLOOD UREA NITROGEN 25.5 mg/dL (7-18)
[2023-01-14 10:17] LABS: CREATININE 0.7 mg/dL (0.55-1.3)
[2023-01-14 10:19] LABS: BILIRUBIN,TOTAL 0.5 mg/dL (0.2-1); TOT PROT 6.1 g/dl (6.4-8.2)
== END 2023-01-14 11:39 | disposition home or self-care (01) | DRG 80 ==
LOC: JER 11:18 → JERBED 15:15 → JICU 16:11 → J8W 01-10 18:12
PROVIDERS: ADMIT Family Medicine; ATTEND Family Medicine
PROC: 4A133B1 Monitoring of Arterial Pressure, Peripheral, Percutaneous Approach (ICD-10-PCS; principal; 2023-01-05)
PROC: 4A133J1 Monitoring of Arterial Pulse, Peripheral, Percutaneous Approach (ICD-10-PCS; 2023-01-05)
PROC: 05HM33Z Insertion of Infusion Device into Right Internal Jugular Vein, Percutaneous Approach (ICD-10-PCS; 2023-01-05)
PROC: B543ZZA Ultrasonography of Right Jugular Veins, Guidance (ICD-10-PCS; 2023-01-05)
DX: E03.5 Myxedema coma (principal); J18.9 Pneumonia, unspecified organism; R57.1 Hypovolemic shock; R57.8 Other shock; K72.00 Acute and subacute hepatic failure without coma; E27.49 Other adrenocortical insufficiency; E23.0 Hypopituitarism; M62.82 Rhabdomyolysis; N17.9 Acute kidney failure, unspecified; J44.9 Chronic obstructive pulmonary disease, unspecified; E78.5 Hyperlipidemia, unspecified; Z85.118 Personal history of other malignant neoplasm of bronchus and lung; E83.42 Hypomagnesemia; E87.5 Hyperkalemia; I12.9 Hypertensive chronic kidney disease with stage 1 through stage 4 chronic kidney disease, or unspecified chronic kidney disease; N18.9 Chronic kidney disease, unspecified; I95.9 Hypotension, unspecified; E03.9 Hypothyroidism, unspecified
CPT/HCPCS: 0241U-QW; 36415; 36600; 70552-TC; 71045-TC-FY; 76775-TC; 80048; 80053; 81003; 82024; 82533; 82550; 82553; 82570; 82728; 82803; 82962; 83540; 83550; 83605; 83615; 83735; 83880; 83935; 84100; 84156; 84300; 84436; 84439; 84443; 84481; 84484; 84540; 85025; 85027; 85610; 85730; 86850; 86900; 86901; 87040; 87086; 93005; 93010; 93306-TC; 93308; 93970; 97116-GP; 97161-GP; 99285-25; J1644; J3490